=== PATIENT | female | born 1990 | race Caucasian/White ===

== ENCOUNTER 2020-05-08 16:00 | Emergency (ER) | payer OTHER, SELFPAY ==
[2020-05-08 16:01] VITALS: BP 128/78; PULSE 90; RESP 16; TEMP 36.7; O2SAT 100
[2020-05-08] MEDS: CELLULOSE OXIDIZED 2 x 14 INCH 1 PKT XX (17:08)
--- NOTE | 2020-05-08 17:15 | ED.GENADULT ---
HPI - General Adult General Chief complaint: Extremity Injury, Upper Stated complaint: finger tip amputation Time Seen by Provider: 05/08/20 16:01 Source: patient Mode of arrival: ambulatory Limitations: no limitations History of Present Illness HPI narrative: Patient is a 29-year-old female who presents to emergency department for evaluation of injury to the right middle digit occurred just prior to arrival while using a sharp edge preparing dinner patient notes her tetanus to be up-to-date patient notes mild aching pain worse with touch and activity injury presenting is a skin avulsion to the distal phalanx patient denies other injuries or complaints and on arrival does not appear uncomfortable or in any distress Related Data Home Medications Medication Instructions Recorded Confirmed No Home Medications 05/08/20 05/08/20 Allergies Allergy/AdvReac Type Severity Reaction Status Date / Time No Known Allergies Allergy Verified 05/08/20 16:08 Review of Systems Review of Systems: All systems reviewed & are unremarkable except as noted in HPI and below PMFSH Social History Social History Gender identity (if verbalized by the patient): Female Exam Narrative: Exam Narrative: GENERAL: Well-appearing, well-nourished, and in no acute distress. HEAD: Normocephalic, atraumatic. EYES: PERRLA and EOMI. ENT: Nares clear, no rhinorrhea or epistaxis. Mucous membranes moist. EXTREMITIES: Normal range of motion. No edema. SKIN: Warm, dry, no rash. Half centimeter skin avulsion right middle digit distal phalanx NEURO: No focal deficits. Alert and oriented x3. Neurovascularly intact PSYCH: Normal mood and affect. Course Course Emergency Course: Patient in the room in no distress hemodynamically stable bleeding controlled felt appropriate for discharge home Vital Signs Vital signs: Vital Signs Temperature 98.1 F 05/08/20 16:01 Pulse Rate 90 05/08/20 16:01 Respiratory Rate 16 05/08/20 16:01 Blood Pressure 128/78 05/08/20 16:01 Pulse Oximetry 100 05/08/20 16:01 Temperature 98.1 F 05/08/20 16:01 Pulse Rate 90 05/08/20 16:01 Respiratory Rate 16 05/08/20 16:01 Blood Pressure 128/78 05/08/20 16:01 Pulse Oximetry 100 05/08/20 16:01 Procedures Other Procedure Procedure 1: Other Procedure: Let and Surgicel applied to the digit with 4 x 4 and pressure dressing hemodynamically stable Medical Decision Making MDM Narrative Medical decision making narrative: Patients injury or pain is consistent with musculoskeletal etiology. No signs of neurological or vascular compromise on exam. Compartments and tisues are soft without signs of compartment syndrome. Pain is felt appropriate for further evaluation on an outpatient basis. Vital Signs Vital Signs: Vital Signs Temperature 98.1 F 05/08/20 16:01 Pulse Rate 90 05/08/20 16:01 Respiratory Rate 16 05/08/20 16:01 Blood Pressure 128/78 05/08/20 16:01 Pulse Oximetry 100 05/08/20 16:01 Temperature 98.1 F 05/08/20 16:01 Pulse Rate 90 05/08/20 16:01 Respiratory Rate 16 05/08/20 16:01 Blood Pressure 128/78 05/08/20 16:01 Pulse Oximetry 100 05/08/20 16:01 Discharge Plan Discharge Clinical Impression: Avulsion of skin of finger Patient Disposition: Home, Self-Care Condition: Stable Instructions: Antibiotic Form, Skin Avulsion (ED) Additional Instructions: Follow up with primary care in the next 7 days for reevaluation as needed return if symptoms worsen or concerns, any increase in redness swelling pain or fever over 100.5 Clean wound with mild soapy water. Apply antibiotic ointment and clean dressing at least three times daily Prescriptions: No Action No Home Medications RF: 0 Interventions: Discharge Disposition Last Done: 05/08/20 17:11 IV Removed Last Done: 05/08/20 17:11 IV Stop Time Documented Last Done:
== END 2020-05-08 17:20 | disposition home or self-care (01) ==
PROVIDERS: Emergency Provider Emergency Medicine
DX: S61.202A Unspecified open wound of right middle finger without damage to nail, initial encounter (principal); Y93.G1 Activity, food preparation and clean up; W27.4XXA Contact with kitchen utensil, initial encounter
CPT/HCPCS: 12001; 99282

== ENCOUNTER 2021-08-15 10:14 | Outpatient (RCR) | payer OTHER, SELFPAY ==
[2021-08-05 11:23] VITALS: BP 112/67; PULSE 92
[2021-08-12 09:42] VITALS: BP 110/71; PULSE 82
[2021-08-15 10:50] VITALS: BP 123/77; PULSE 82
== END 2021-09-09 20:37 | disposition home or self-care (01) ==
LOC: ANHOBOP 10:14
PROVIDERS: PCP Internal Medicine; Visit Provider Obstetrics & Gynecology
DX: O36.5930 Maternal care for other known or suspected poor fetal growth, third trimester, not applicable or unspecified (principal); Z3A.37 37 weeks gestation of pregnancy; Z3A.38 38 weeks gestation of pregnancy
CPT/HCPCS: 59025

== ENCOUNTER 2021-08-16 08:45 | Inpatient (IN) | payer OTHER, SELFPAY ==
[2021-08-16] VITALS (66 sets, daily range): BP systolic 89–153; BP diastolic 56–94; PULSE 39–108; RESP 16–18; TEMP 36.7–38.1; O2SAT 82–100; BMI 24.0
--- NOTE | 2021-08-16 08:45 | LDADM ---
This patient, Tammy Portillo, was admitted to Labor/Delivery/Recovery 106 on 08/16/21 at 08:45. Plans for labor, pain management and were discussed with patient. Patient/family oriented to hospital policies and general routines including ID bracelet, bed and alarms, visiting hours, pain management, procedures, bathroom and other care routines, personal items, smoking policy, room service/diet and guest tray routines, security routines, and visiting hours. Patient/Family are encouraged to report perceived risks to care and to ask questions if they do not understand what they are told or what they should do. See OBIX for further documentation.
[2021-08-16] MEDS: LACTATED RINGERS 1,000 ML 125 ML IV CONT (09:28)
[2021-08-16] MEDS: AMPICILLIN 2 GM/NS 100 ML 2 GM/100 ML BAG IVPB (09:30)
[2021-08-16 09:44] LABS: Basophils Percent Auto 0.1 % (0.2-1.2); Eosinophils Percent Auto 0.1 % (0-4.4); Immature Granulocyte Absolute 0.03 K/mm3 (0.00-0.031); Immature Granulocyte Percent A 0.4 % (0-0.5); Lymphocytes Absolute Auto 0.96 K/mm3 (0.9-3.2); Lymphocytes Percent Auto 12.8 % (18.3-44.2); Mean Corpuscular HGB Conc 33.3 g/dl (32-36); Mean Corpuscular Hemoglobin 30.7 pg (26-34); Mean Platelet Volume 10.8 fl (7.4-10.4); Monocytes Absolute Auto 0.5 K/mm3 (0.1-0.6); Monocytes Percent Auto 6.3 % (2.6-8.5); Neutrophils Percent Auto 80.3 % (45.5-73.1); Platelet Count Result 212 k/mm3 (150-375); Red Blood Count 4.24 M/mm3 (4.2-5.4); Red Cell Distribution Width 13.4 % (11.5-14.5); White Blood Count 7.5 K/mm3 (4.5-10.0)
--- NOTE | 2021-08-16 10:03 | P.PNAN_ITS ---
Anes - Initial Pre Proc Eval Procedure: labor epidural Date/Time: 08/16/21 10:03 Surgeon: Neymar Sam MD Pre Op Diagnosis: labor pain Pre Op Diagnosis: Labor Patient Data Age: 30 Gender: F Height: Weight: Last Vital Signs Pulse 81 08/16/21 10:01 BP 95/63 L 08/16/21 10:01 Pulse Ox 100 08/16/21 10:01 Allergies Allergy/AdvReac Type Severity Reaction Status Date / Time No Known Allergies Allergy Unverified 05/11/20 10:51 Home Medications Medication Instructions Recorded Confirmed Type PNV cmb#95-ferrous fumarate-FA 1 tablet PO DAILY 08/08/21 08/08/21 History [] Laboratory Tests 08/16/21 08/16/21 09:33 09:33 WBC 7.5 K/mm3 K/mm3 (4.5-10.0) RBC 4.24 M/mm3 M/mm3 (4.2-5.4) Hgb 13.0 g/dL g/dL (12.0-15.0) Hct 39.0 % % (37.0-47.0) MCV 92.0 fl fl (80-100) MCH 30.7 pg pg (26-34) MCHC 33.3 g/dl g/dl (32-36) RDW 13.4 % % (11.5-14.5) Plt Count 212 k/mm3 k/mm3 (150-375) MPV 10.8 fl H fl (7.4-10.4) Immature Gran % (Auto) 0.4 % % (0-0.5) Neut % (Auto) 80.3 % H % (45.5-73.1) Lymph % (Auto) 12.8 % L % (18.3-44.2) [place] % (Auto) 6.3 % % (2.6-8.5) Eos % (Auto) 0.1 % % (0-4.4) Baso % (Auto) 0.1 % L % (0.2-1.2) Lymph # (Auto) 0.96 K/mm3 K/mm3 (0.9-3.2) [place] # (Auto) 0.5 K/mm3 K/mm3 (0.1-0.6) Eos # (Auto) 0.0 K/mm3 K/mm3 (0-0.3) Baso # (Auto) 0.0 K/mm3 K/mm3 (0.0-0.1) Abs Immat Gran (auto) 0.03 K/mm3 K/mm3 (0.00-0.031) Absolute Neuts (auto) 6.0 K/mm3 K/mm3 (1.3-6.7) Absolute Nucleated RBC 0.0 K/mm3 K/mm3 (0.0-0.012) Nucleated RBC % 0.0 % % (0.0-0.2) RPR Pending Patient hx anesthesia problems: none Family hx anesthesia problems: none Results Review: All pre-operative results and documents have been reviewed as part of the pre-operative evaluation. FORMERLY [facility], [facility] Family History Family History (Updated 08/08/21 @ 12:39 by Lizzie Marroquin RN) Father Diabetes type 2, controlled Social History Social History (System 05/11/20 @ 10:51 by Deonna White) Substance use: never Gender identity (if verbalized by the patient): Female Spiritual care concerns: No Anes - Eval Final PreProcedure Day of Procedure 08/16/21 10:03 Patient weight: normal ASA classification: II Anesthesia type and monitoring: regional epidural and standard monitoring Results Review: All pre-operative results and documents have been reviewed as part of the pre-operative evaluation. Informed Consent: The patient's anesthetic plan and its attendant risks and benefits were discussed with the patient/family/POA. Questions were solicited and answers provided to the satisfaction of the patient/family/POA.
--- NOTE | 2021-08-16 13:07 | WPDOBADMIT ---
Obstetrics - Admit Note Admission Note: record reviewed. No pertinent additions to the history and/or any subsequent changes in the physical findings that are not consistent with the expected course of the were found. Additions to the history and/or subsequent changes in the physical findings follow. None.
--- NOTE | 2021-08-16 13:07 | WPDHPUPDATE1 ---
History and Physical Update Update Date/Time: 08/16/21 13:07 History and Physical has been reviewed, including an updated exam of the patient. There are NO changes in the patient's condition. Risks, benefits, and alternatives have been discussed and questions answered. Patient agrees to proceed with procedure.
--- NOTE | 2021-08-16 13:08 | PM.OBPRVD ---
OB - Delivery Note Procedure Route of delivery: Episiotomy description: None Laceration Description: Periurethral Specimen: Yes Quantitative Blood Loss (ml): 300 Anesthesia type: Epidural Disposition: floor Narrative: Patient prepped and draped in usual manner for this procedure. Maternal expulsive efforts readily delivered the vertex. Nuchal cord was noted and reduced and the rest of baby was delivered without difficulty. Cord was clamped and cut placenta delivered spontaneously. Cervix vagina vulva were inspected with no significant lacerations or tears though the periurethral tissue was slightly irritated. At this point the procedure was considered terminated with the immediate postoperative condition mother and baby both excellent. Baby Weeks of gestation at delivery: 39 gender: Male Weight (pounds): 6 Weight (ounces): 4 presentation: vertex score one minute: 9 score five minutes: 9
--- NOTE | 2021-08-16 13:11 | PM.OBPRVD ---
OB - Delivery Note Procedure Anesthesia type: Epidural Baby Weeks of gestation at delivery: 39 Infant gender: Male Weight (pounds): 6 Weight (ounces): 4 presentation: vertex score one minute: 9 score five minutes: 9 AMG Delivery Billing Delivery Delivery: Delivery Charge
[2021-08-16 14:33] LABS: Rapid Plasma Reagin Non-Reactive (NonReactive)
--- NOTE | 2021-08-16 16:10 | PC.NURSE ---
Patient transferred to post room #291 via wheelchair. Support person present. Oriented to unit, room, information board, rooming in, admission packet and security measures. Patient verbalizes understanding.
[2021-08-16] MEDS: IBUPROFEN 600 MG TABLET PO (16:17)
[2021-08-16] MEDS: OXYTOCIN 30 UNITS/NS 500 ML 30 UNITS/500 ML BAG 125 UNITS IV CONT (16:36)
[2021-08-17] VITALS: BP 104/59; PULSE 70; RESP 18; TEMP 36.9; O2SAT 100
[2021-08-17 04:19] VITALS: BP 106/59; PULSE 74; RESP 18; TEMP 36.5; O2SAT 100
[2021-08-17 05:19] LABS: Hematocrit 31.3 % (37.0-47.0); Hemoglobin 10.4 g/dL (12.0-15.0)
--- NOTE | 2021-08-17 07:35 | PM.OBDSVD ---
DS: Admitting Diagnosis Discharge Date 08/17/2021 Admitting Diagnosis OB - DS: Summary OB Procedures : None OB Procedures Intrapartum: Spontaneous Vag Delivery OB Procedures: : None Time Spent with Patient Time attestation: Total time spent providing and/or coordinating discharge services: DS: Data Data Completed and Pending Pending studies at discharge: Pending at discharge 08/16/21 12:59 Surgical [PTH] Routine Labs on day of discharge: Labs from last 24 hours 08/17/21 08/16/21 08/16/21 04:10 09:33 09:33 WBC RBC Hgb 10.4 L Hct 31.3 L MCV MCH MCHC RDW Plt Count MPV Immature Gran % (Auto) Neut % (Auto) Lymph % (Auto) [place] % (Auto) Eos % (Auto) Baso % (Auto) Lymph # (Auto) [place] # (Auto) Eos # (Auto) Baso # (Auto) Abs Immat Gran (auto) Absolute Neuts (auto) Absolute Nucleated RBC Nucleated RBC % RPR Non-reactive Blood Type A Positive Antibody Screen Negative 08/16/21 09:33 WBC 7.5 RBC 4.24 Hgb 13.0 Hct 39.0 MCV 92.0 MCH 30.7 MCHC 33.3 RDW 13.4 Plt Count 212 MPV 10.8 H Immature Gran % (Auto) 0.4 Neut % (Auto) 80.3 H Lymph % (Auto) 12.8 L [place] % (Auto) 6.3 Eos % (Auto) 0.1 Baso % (Auto) 0.1 L Lymph # (Auto) 0.96 [place] # (Auto) 0.5 Eos # (Auto) 0.0 Baso # (Auto) 0.0 Abs Immat Gran (auto) 0.03 Absolute Neuts (auto) 6.0 Absolute Nucleated RBC 0.0 Nucleated RBC % 0.0 RPR Blood Type Antibody Screen Discharge Plan Discharge Discharging Clinician: Schreiber Patient Disposition: Home, Self-Care Activity: as tolerated Diet: as tolerated Discharge Instructions: Education: Mom and Baby Guide Given to: Mother Follow-Up: Call your delivering provider's office for an appointment to be seen in: 3 weeks Mom and baby should come to the [facility] for the follow-up appointment. Appointment Date/Time: August 18, 2021 at 10:00 am What to expect at your follow-up visit: Blood Pressure Check Physical Assessment Call [phone] if you are unable to keep your appointment time. BREAST CARE: * Wear a snug supportive bra. * For engorgement discomfort: Breast Feeding: * Apply warm moist washcloths * Express milk as needed to relieve engorgement * Wear loose clothing * For sore nipples: * Identify correct latch-on * Apply warm moist washcloths before and after nursing * Air dry nipples after nursing * May apply Lansinoh cream to nipples EPISIOTOMY/PERINEAL CARE: * Until bleeding stops, use your travis bottle after urinating * Change your pad frequently throughout the day * You may take sitz baths several times a day (fill your bathtub with warm water and soak for 20 minutes.) Do NOT bathe in the water * No tub baths until seen by your physician - You may shower ACTIVITY: * Rest as much as possible. * Do not exercise or lift anything heavier than your baby (such as laundry or other children.) * Avoid stairs or driving as much as possible. * Do not put anything into the vagina. No douching, tampons, or sexual activity until seen by physician. NOTIFY PHYSICIAN IF YOU HAVE ANY QUESTIONS OR IF ANY OF THE FOLLOWING SYMPTOMS OCCUR: * If your vaginal area becomes red, swollen, or more painful than what you have experienced in the hospital. * If your vaginal bleeding becomes foul smelling. * If your vaginal bleeding becomes more heavy than a period or if your bleeding changes from the color it is now to bright crayon red . However, you may pass an occasional walnut-sized clot once or twice for the first week . * If you experience a sharp, shooting pain in your calves. * If you discover a hard, reddened area on your breast or if you experience flu-like symptoms. DIET: * Eat regular, well-balanced meals. * Drink plenty of fluids daily.
--- NOTE | 2021-08-17 07:47 | WPDANLDPN2 ---
Anes-Prog Note L&D Date/Time: 08/17/21 07:47 Comfortable throughout: labor and delivery Neuraxial method: epidural Epidural/Spinal procedure site: clean & non-tender Neuro status: Neuro function grossly intact. Cardiovascular status: normal Respiratory status: normal Airway patency: baseline Mental status: baseline Post-Op hydration status: normal Vital Signs: Last Vital Signs Temp 97.7 F 08/17/21 04:19 Pulse 74 08/17/21 04:19 Resp 18 08/17/21 04:19 BP 106/59 L 08/17/21 04:19 Pulse Ox 100 08/17/21 04:19 Pain score (VAS): 08/15 I/O: Intake & Output 08/16/21 08/16/21 08/17/21 15:59 23:59 07:59 Output Total 300 25 Balance -300 -25 Post-procedural complaints: none Patient feedback: Patient satisfied with anesthetic care.
[2021-08-17 08:00] VITALS: PULSE 74; RESP 18; O2SAT 100
[2021-08-17 08:25] VITALS: BP 127/79; PULSE 87; RESP 18; TEMP 36.8; O2SAT 100
--- NOTE | 2021-08-17 08:31 | PC.NURSE ---
Infant transferred to [facility]. No need for maternal follow up at [facility] per Dr. Sam. She will be seen in his office in 3 weeks.
[2021-08-17] MEDS: DOCUSATE SODIUM 100 MG CAPSULE PO (08:51)
[2021-08-17] MEDS: IBUPROFEN 600 MG TABLET PO (08:51)
[2021-08-17] MEDS: MULTIVIT/MIN/PREN/FOL AC/IRON TABLET 1 TAB PO (08:51)
[2021-08-17] MEDS: BENZOCAINE 20% AER SPR (*SP) 56 GM CAN 1 SPRAY TOPICAL (09:19)
[2021-08-17] MEDS: LANOLIN (LANSINOH) 7.5 GM CREAM 1 APPLIC TOPICAL (09:20)
== END 2021-08-17 09:45 | disposition home or self-care (01) | DRG 807 ==
LOC: ANHLDR 09:04 → ANHOB2 16:12
PROVIDERS: Admitting Provider Obstetrics & Gynecology; PCP Internal Medicine; Visit Provider Obstetrics & Gynecology
DX: O36.5930 Maternal care for other known or suspected poor fetal growth, third trimester, not applicable or unspecified (principal); Z37.0 Single live birth; O71.82 Other specified trauma to perineum and vulva; O69.81X0 Labor and delivery complicated by cord around neck, without compression, not applicable or unspecified; Z3A.39 39 weeks gestation of pregnancy
CPT/HCPCS: 36415; 84112; 85014; 85018; 85025; 86592; 86850; 86900; 86901; 88307; A9270; J0290; J2590; J2795; J7120

== ENCOUNTER 2022-02-06 09:03 | Emergency (ER) | payer OTHER, SELFPAY ==
[2022-02-06 09:07] VITALS: BP 106/64; PULSE 70; RESP 16; TEMP 37.1; O2SAT 100
--- NOTE | 2022-02-06 09:11 | ED.SKABFB ---
HPI - Skin/Abscess/Foreign Bdy General Chief complaint: Eye Problems Stated complaint: Left eye swollen Time Seen by Provider: 02/06/22 09:11 Source: patient Mode of arrival: ambulatory Limitations: no limitations History of Present Illness HPI narrative: 31 yo F presents with c/o swelling to L eyebrow since yesterday. States she had pimple to L eyebrow that she popped. Woke up today with swelling around L eye. No drainage. All systems reviewed and negative except as noted above. Related Data Allergies Allergy/AdvReac Type Severity Reaction Status Date / Time No Known Allergies Allergy Verified 12/15/21 10:50 Review of Systems Review of Systems: CONSTITUTIONAL: Denies fever, chills, or sweats. EYES: Denies visual changes, redness, or discharge. ENT: Denies rhinorrhea, congestion, sore throat, or otalgia. CARDIOVASCULAR: Denies chest pain, palpitations, or edema. RESPIRATORY: Denies cough or dyspnea. GASTROINTESTINAL: Denies abdominal pain, nausea, vomiting, or diarrhea. GENITOURINARY: Denies dysuria or hematuria. SKIN: Reports redness and swelling to left eyebrow. MUSCULOSKELETAL: Denies back pain, joint pain, or myalgia. NEUROLOGIC: Denies headache, numbness, or weakness. PSYCHIATRIC: Denies anxiety or depression. All other systems reviewed are negative, except as documented in HPI. FORMERLY [facility], [facility] Past Medical History Medical History Breast nodule (~2012) left breast nodule Miscarriage (06/30/15) Surgical History Surgical History History of dilation and curettage (06/30/15) suction d&c--miscarriage/POC History of wisdom tooth extraction (~2005) Family History Family History (Updated 12/15/21 @ 10:52 by LAUREEN Costello) Father Diabetes type 2, controlled Grandparent Cerebrovascular accident maternal grandfather Other Breast cancer, Onset Age: 57 Maternal Aunt Social History Social History (Updated 12/15/21 @ 10:53 by LAUREEN Costello) Smoking status: Never smoker Alcohol intake: never Substance use: never Substance use type: does not use Additional living arrangements comments: spouse Additional occupation/education comments: teacher Gender identity (if verbalized by the patient): Female Sexual Orientation (if Verbalized by the Patient): Straight or Heterosexual Spiritual care concerns: No Comments At time of signature, agree with nursing past medical, surgical, social and family history. There is no relevant family history pertinent to the presenting complaint. Exam Narrative: GENERAL: This is a well-nourished, well-developed patient, in no apparent distress. HEAD: normocephalic, atraumatic. EYES: PERRL. Sclera clear/white. Vision is grossly intact. EARS: External ears normal NOSE: External nose normal Skin: no suspicious lesions or rash. mild erythema and swelling to L eyebrow and around L eye. NECK: Neck supple, non-tender without lymphadenopathy, masses or thyromegaly. CARDIOVASCULAR: Regular rate and rhythm without murmurs, gallops, or rubs. RESPIRATORY: Clear to auscultation. Breath sounds equal bilaterally. No wheezes, rales, or rhonchi. NEURO: awake, alert, and oriented to person, place and time. There were no obvious focal neurologic abnormalities. EXTREMITIES: No joint tenderness, effusion, or edema noted. Course Course Level of Care: Express Care Visit Vital Signs Vital signs: Vital Signs Temperature 37.1 C 02/06/22 09:07 Pulse Rate 70 02/06/22 09:07 Respiratory Rate 16 02/06/22 09:07 Blood Pressure 106/64 02/06/22 09:07 Pulse Oximetry 100 02/06/22 09:07 Oxygen Delivery Room Air 02/06/22 09:07 Temperature 37.1 C 02/06/22 09:07 Pulse Rate 70 02/06/22 09:07 Respiratory Rate 16 02/06/22 09:07 Blood Pressure 106/64 02/06/22 09:07 Pulse Oximetry 100 02/06/22 09:07 Oxygen Delivery Room Air
== END 2022-02-06 09:25 | disposition home or self-care (01) ==
PROVIDERS: Emergency Provider Nurse Practitioner Family
DX: L03.211 Cellulitis of face (principal); Z86.16 Personal history of COVID-19
CPT/HCPCS: 99213; G0463

== ENCOUNTER 2022-12-24 08:56 | Emergency (ER) | payer OTHER, SELFPAY ==
[2022-12-24 09:02] VITALS: BP 106/59; PULSE 95; RESP 14; TEMP 36.8; O2SAT 100
--- NOTE | 2022-12-24 09:34 | ED.GENADULT ---
HPI - General Adult General Chief complaint: Upper Respiratory Infection Stated complaint: sore throat Source: patient Mode of arrival: ambulatory Limitations: no limitations History of Present Illness HPI narrative: Patient presents for evaluation of sore throat since yesterday. She also reports some left-sided ear pain. No fever, chills, nausea, vomiting, diarrhea, cough, shortness of breath. No recent sick contacts to her knowledge. She has not taken any medication to assist with her symptoms. She does not smoke. No additional complaints or concerns. Related Data Allergies Allergy/AdvReac Type Severity Reaction Status Date / Time No Known Allergies Allergy Verified 12/24/22 09:09 Review of Systems Review of Systems: CONSTITUTIONAL: Denies fever, chills, or sweats. EYES: Denies visual changes, redness, or discharge. ENT: Reports sore throat and left sided ear pain. CARDIOVASCULAR: Denies chest pain, palpitations, or edema. RESPIRATORY: Denies cough or dyspnea. GASTROINTESTINAL: Denies abdominal pain, nausea, vomiting, or diarrhea. GENITOURINARY: Denies dysuria or hematuria. SKIN: Denies rash or itching. MUSCULOSKELETAL: Denies back pain, joint pain, or myalgia. NEUROLOGIC: Denies headache, numbness, dizziness, or weakness. PSYCHIATRIC: Denies anxiety or depression. [facility] Past Medical History Medical History Breast nodule (~2012) left breast nodule Miscarriage (06/30/15) Surgical History Surgical History History of dilation and curettage (06/30/15) suction d&c--miscarriage/POC History of wisdom tooth extraction (~2005) Family History Family History Father Diabetes type 2, controlled Grandparent Cerebrovascular accident maternal grandfather Other Breast cancer, Onset Age: 57 Maternal Aunt Social History Social History Smoking status: Never smoker Alcohol intake: never Substance use: never Substance use type: does not use Living arrangements: other Additional living arrangements comments: spouse Occupation/Education: occupation Additional occupation/education comments: teacher Gender identity (if verbalized by the patient): Female Sexual Orientation (if Verbalized by the Patient): Straight or Heterosexual Spiritual care concerns: No Exam Narrative: GENERAL: Well-appearing, well-nourished, and in no acute distress. HEAD: Normocephalic, atraumatic. EYES: PERRLA and EOMI. ENT: Nares clear, no rhinorrhea or epistaxis. Mucous membranes moist. Mild posterior pharyngeal erythema without exudate. Bilateral TMs pearly butts nonbulging NECK: Supple. No adenopathy or masses. No carotid bruits or JVD CHEST: Clear to auscultation. No respiratory distress. No wheezes rales or rhonchi HEART: Regular rate and rhythm. No murmur heard. Normal peripheral pulses. ABDOMEN: Soft, nontender, nondistended, normal active bowel sounds. EXTREMITIES: Normal range of motion. No edema. SKIN: Warm, dry, no rash. NEURO: No focal deficits. Alert and oriented x3. PSYCH: Normal mood and affect. Course Course Emergency Course: This is a 32-year-old female who presented for evaluation of sore throat. Rapid strep positive. Will treat with amoxicillin. Follow up with primary this week. Go to ER for difficulty breathing or swallowing. Pt in agreement with plan of care. Level of Care: Express Care Visit Vital Signs Vital signs: Vital Signs Temperature 36.8 C 12/24/22 09:02 Pulse Rate 95 12/24/22 09:02 Respiratory Rate 14 12/24/22 09:02 Blood Pressure 106/59 L 12/24/22 09:02 Pulse Oximetry 100 12/24/22 09:02 Oxygen Delivery Room Air 12/24/22 09:02 Temperature 36.8 C 12/24/22 09:02 Pulse Rate 95 12/24/22 09:02 Re
== END 2022-12-24 09:39 | disposition home or self-care (01) ==
PROVIDERS: Emergency Provider Nurse Practitioner
DX: J02.0 Streptococcal pharyngitis (principal)
CPT/HCPCS: 87880; 99213; G0463